=== PATIENT | female | born 1990 | race Caucasian/White ===

== ENCOUNTER 2024-08-04 16:56 | Emergency (ER) | payer OTHER, SELFPAY ==
[2024-08-04 17:16] VITALS: BP 115/75
[2024-08-04] MEDS: ATIVAN 2 MG IM (17:18)
[2024-08-04] MEDS: HALDOL 5 MG IM (17:19)
[2024-08-04] MEDS: NICODERM TRANSDERMAL 21 MG TRANSDERM (17:26)
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
[2024-08-04 18:58] LABS: % Basophils 0.2 % (0-2); % Eosinophils 0.4 % (0-6); % Immature Granulocytes 0.4 % (0-0.5); % Lymphocytes 26.3 % (20.5-51.1); % Monocytes 6.6 % (1.7-9.3); % Neutrophils 66.1 % (42.2-75.2); Absolute Lymphocytes 2.9 10^3/uL (1.2-3.4); Absolute Monocytes 0.7 10^3/uL (0.1-0.6); Absolute Neutrophils 7.4 10^3/uL (1.4-6.5); Hematocrit 36.8 % (37.0-47.0); Hemoglobin 12.8 g/dL (12.0-16.0); Mean Corp Hgb Conc. 34.8 g/dL (33.0-37.0); Mean Corpuscular Hgb 32.8 pg (27.0-31.0); Mean Corpuscular Volume 94.4 fL (81.0-99.0); Mean Platelet Volume 9.5 fL (7.4-10.4); Nucleated Red Blood Cells % 0 %; Platelet Count 209 10^3/uL (130-400); White Blood Cell Count 11.2 10^3/uL (4.8-10.8)
[2024-08-04 19:08] LABS: HCG, Serum Qualitative Screen Negative
[2024-08-04 19:12] LABS: ALT (SGPT) 27 U/L (0-35); AST (SGOT) 40 U/L (14-36); Acetaminophen < 10 ug/ml (10-30); Albumin 4.2 g/dl (3.5-5.0); Alcohol 48 mg/dl; Alkaline Phosphatase 54 U/L (38-126); Blood Urea Nitrogen 4 mg/dl (7-17); Calcium 9.6 mg/dl (8.4-10.2); Carbon Dioxide 27 mmol/L (22-30); Chloride 108 mmol/L (98-107); Glucose 84 mg/dl (70-99); Potassium 3.8 mmol/L (3.5-5.1); Salicylate < 1.0 mg/dl (2.0-20.0); Sodium 141 mmol/L (135-145); Total Bilirubin 0.6 mg/dl (0.2-1.3); Total Protein 6.8 g/dl (6.3-8.2); eGFR > 60.00
[2024-08-04 19:54] VITALS: BP 117/66
[2024-08-05 07:22] VITALS: BP 106/69
[2024-08-05 10:43] LABS: Amphetamines Negative (Negative); Barbiturates Negative (Negative); Benzodiazepines Positive (Negative); Buprenorphine Negative (Negative); Cocaine Negative (Negative); Marijuana Positive (Negative); Methadone Negative (Negative); Methamphetamines Negative (Negative); Opiates Negative (Negative); Phencyclidine Negative (Negative); Tricyclic Antidepressants Negative (Negative)
[2024-08-05 11:01] LABS: Fentanyl, Urine Negative (Negative)
== END 2024-08-05 12:55 ==
LOC: EMR 16:56
PROVIDERS: EMERGENCY PHYSICIAN Emergency Medicine
DX: F29 Unspecified psychosis not due to a substance or known physiological condition (principal); F17.200 Nicotine dependence, unspecified, uncomplicated
CPT/HCPCS: 99285; 96372 ×2; 80053; 80143; 80179; 80306; 80307; 82077; 84703; 85025

== ENCOUNTER 2024-10-09 06:06 | Emergency (ER) | payer OTHER, SELFPAY ==
[2024-10-09 06:08] VITALS: BP 130/70
[2024-10-09 06:26] VITALS: BMI 24.1
--- NOTE | 2024-10-09 06:35 | ED.GENMED ---
History of Present Illness
<Rodger Rubio MD, Resident - Last Filed: 10/09/24 07:53>
General
Chief Complaint: Allergic Reaction
Source: patient
Exam Limitations: none
Time Seen by Provider: 10/09/24 06:17
Nursing documentation reviewed up to this point in time: agreed with
History of Present Illness
History of Present Illness:
This is a 34-year-old female With history of ADHD, alcohol abuse, anxiety/depression, bipolar, panic disorder, PTSD history of substance abuse, multiple medication for mental health presenting to the emergency department today with complaints of
left eye swelling. She reports that initially she noticed some puffiness of her left eye yesterday however when she woke up today her eye was extremely swollen and tender to touch which prompted her to visit the emergency department. She denies
any fevers or chills, denies any other systemic symptoms. Denies any vision changes, headache, trouble breathing, chest pain or any weakness. She also denies any exposure to new medication, new make-ups, new laundry detergents, new bed sheets.
She uses contacts. However she was able to remove the as she can also use the prescription eyeglasses. Denies any pain with eye movement.Denies diplopia or vision impairment.
Reports that she had a spider bite on the left leg 2 weeks ago and utilized doxycycline which helped resolve the swelling of the left eye.
Past History
<Rodger Rubio MD, Resident - Last Filed: 10/09/24 07:53>
Past History
ED Past Medical History: Psychiatric (ADHD, alcohol abuse, anxiety/depression, bipolar, panic disorder, PTSD, substance anteriors)
ED Past Surgical History: Orthopedic and Other (Oral)
Patient has exhibited threatening behavior?: No
Social History
Tobacco: Smoker (1 pack/day)
Alcohol: Binge drinker
Drug: Marijuana
Personal: Single
Family History
Family History: Other (Noncontributory)
Review of Systems
<Rodger Rubio MD, Resident - Last Filed: 10/09/24 07:53>
Review of Systems
Allergies reviewed?: Yes
Constitutional: Denies fever or chills
EENT: Denies tearing, sore throat, mouth swelling or runny nose
Respiratory: Denies cough
Cardiac: Denies chest pain
ABD/GI: Denies abdominal pain
: Denies dysuria
Musculoskeletal: Denies joint pain
Skin: Reports other (Pain and swelling of the left eye); Denies itching
Neurological: Denies dizzy
Endocrine: Denies polyuria
Hematologic/Lymphatic: Denies bleeding
Psychiatric: Reports anxiety; Denies suicidal
Phy Exam
<Rodger Rubio MD, Resident - Last Filed: 10/09/24 07:53>
General Physical Exam
General Presentation: no apparent distress
General age: appears stated age
General Skin: warm
General Habitus: normal
General Mental: alert
General Hydration: appears well hydrated
Eye Exam
Eye Exam: PERRL, EOMI, cornea clear, conjunctiva normal, visual hayden normal and other (Visible swelling around the left eye, mildly tender to palpation. Possible insect bite below the lower eyelid where there is some exudate. Mild erythema)
Able to obtain acuity?: Yes
Right 20/: 25
Left 20/: 25
Both 20/: 20
Cardiovascular Exam
Cardiovascular Exam: regular rate/rhythm
Pulmonary Exam
Pulmonary Exam: no stridor and no cough
Musculoskeletal Exam
Musculoskeletal Exam: full ROM
Skin Exam
Skin Exam: normal color and other (Multiple cigarette dickinson barrientos on bilateral upper extremities)
Course
<Rodger Rubio MD, Resident - Last Filed: 10/09/24 07:53>
Orders/Labs/Results
Orders:
Orders
10/09/24 07:27
Visual Acuity- Treatment ONCE
10/09/24 07:43
Cefuroxime Axetil [Ceftin] 500 mg PO NOW STA
Sulfamethox./Trimethoprim Ds [Bactrim Ds 800 mg/160 mg] 1 tablet PO NOW STA
Vital Signs
Initial and Last Documented VS:
Initial Vital Signs
Temp Pulse Resp BP Pulse Ox
37.1 C 85 18 130/70 96
10/09/24 06:08 10/09/24 06:08 10/09/24 06:08 10/09/24 06:08 10/09/24 06:08
Last Documented Vital Signs
Temp Pulse Resp BP Pulse Ox
37.1 C 85 18 130/70 96
10/09/24 06:08 10/09/24 06:08 10/09/24 06:08 10/09/24 06:08 10/09/24 06:36
<Harvey Franks MD - Last Filed: 10/09/24 07:57>
Orders/Labs/Results
Orders:
Orders
10/09/24 07:27
Visual Acuity- Treatment ONCE
10/09/24 07:43
Cefuroxime Axetil [Ceftin] 500 mg PO NOW STA
Sulfamethox./Trimethoprim Ds [Bactrim Ds 800 mg/160 mg] 1 tablet PO NOW STA
Vital Signs
Initial and Last Documented VS:
Initial Vital Signs
Temp Pulse Resp BP Pulse Ox
37.1 C 85 18 130/70 96
10/09/24 06:08 10/09/24 06:08 10/09/24 06:08 10/09/24 06:08 10/09/24 06:08
Last Documented Vital Signs
Temp Pulse Resp BP Pulse Ox
37.1 C 85 18 130/70 96
10/09/24 06:08 10/09/24 06:08 10/09/24 06:08 10/09/24 06:08 10/09/24 06:36
<Rodger Rubio MD, Resident - Last Filed: 10/09/24 07:53>
MDM/Problems Addressed
Differential Diagnosis Includes:
Periorbital cellulitis vs unlikely orbital cellulitis vs others
MDM/Problems Addressed:
Given patient's history of amoxicillin allergy we will consider Ceftin 500mg twice daily for 10 days.
Due to prevalence of community-acquired MRSA, patient with likely staff aureus infection warrants initial empiric therapy against MRSA
will add Bactrim for MRSA coverage as there is suspicion of insect bite.
Telemetry shows eye pressure of 17 in the right eye and 14 in the left eye.
Visual equity normal bilateral
1 dose of Bactrim and Ceftin given in the ER
Patient's vital remained stable in the ER.
Patient's symptoms ideally Should start to improve within 24-48 hours.
Shared decision was made with the patient for discharge home and complete a course of antibiotic outpatient. Return to precautions reviewed. Patient voices understanding agree with the plan.
Chronic conditions affecting care: Psychiatric illness
<Rodger Rubio MD, Resident - Last Filed: 10/09/24 07:53>
*Pulse Oximetry
SaO2: 96
Oxygen Mode of Delivery: Room air
Patient hypoxic: no
*Critical Care Note
Total Time (30-74mins, 75-104mins- exclusive of procedures): Not Applicable
ED Attending Note
<Rodger Rubio MD, Resident - Last Filed: 10/09/24 07:53>
-
Portions of this chart may have been created with voice recognition software.� Occasional wrong word or��sound alike� substitutions may have occurred due to the inherent limitations of voice recognition software.
<Harvey Franks MD - Last Filed: 10/09/24 07:57>
ED Attending Note
Patient seen and examined by attending physician: Yes
I performed a history and physical exam of patient and discussed management with resident, I reviewed resident's note and agree with documented findings and plan of care.: Yes
ED Attending Note:
I have seen and evaluated the patient with a [id number] encounter. I have spoken to the resident and involved in the medical history, the physical exam, medical decision making.
Evaluation and management service: agree unless noted differently below.
Results interpretation: agree unless noted differently below.
Focused HPI: 34-year-old female with history as noted presents to the ER for evaluation of left periorbital swelling. Patient reports that yesterday she noticed tiny pustule under the left eye and some slight localized swelling; this morning woke
up and had significant periorbital swelling and redness and came to the ER for evaluation. Area is mildly painful. She thinks pustule may have been a bug bite as she says that she has had multiple spider bites recently including one that required
a course of doxycycline 2 weeks ago. She denies any trauma to the eye otherwise. She denies any pain in the eye itself. She denies any change in her vision. She denies any fever or chills. Denies any other acute complaints.
Physical exam: Awake alert no distress. Vital signs are normal. She has left periorbital edema with some slight erythema and warmth of the area; she did have tiny pustule under the left eye in the maxillary region but no vesicles area is minimally
tender. Conjunctiva are normal bilaterally, pupils are equal round reactive to light bilaterally. Extraocular movements are intact without any pain. No proptosis noted. Visual acuity as documented. Eye pressures normal.
Medical Decision Makin-year-old female presents with periorbital edema and erythema after noticing a tiny pustule in the maxillary region last night. Vitals and exam as above. Exam is consistent with preseptal cellulitis. Low suspicion for
orbital cellulitis given lack of pain and EOMI, no proptosis, EOMs intact without pain. No vesicles to suggest shingles. Plan to treat with antibiotics. Spoke about follow-up plan and return precautions and all questions answered.
Discharge Plan
Departure
Patient Disposition: Home (Routine Discharge)
Date of Disposition: 10/09/24
Time of Disposition: 07:47
Patient with high blood pressure during this ER visit?: No
Condition: Fair
Discharge Problem:
Preseptal cellulitis of left eye
Instructions: Preseptal cellulitis - ED discharge instructions
Prescriptions:
New
cefuroxime axetil 500 mg tablet
500 mg PO BID Qty: 20 0RF
sulfamethoxazole-trimethoprim [Bactrim DS] 800-160 mg tablet
1 tab PO BID Qty: 20 0RF
No Action
aripiprazole [Abilify] 5 mg Tablet
5 mg PO HS
Referrals:
Tammie Perez MD [Family Provider, Family Practice] - Follow up in 1 week
Activity Restrictions/Additional Instructions:
You were seen at [facility] emergency department with concerns of left eye swelling. While you were in the emergency department we performed tonometry to check the eye pressure, visual equity test. Both were unremarkable. You were given
1 dose of Bactrim 800/160 and Ceftin 500mg in the ER. A prescription of Bactrim and Ceftin was sent to the pharmacy that you should take for 10 days in total. Ideally your symptoms should start improving in 1 to 2 days however if you develop any
worsening of the symptoms or any new worrisome concerns please return to the emergency department. If you develop any pain with eye movement, change in vision, popping of the eye, fevers or chills you should come back to the emergency department.
Please follow-up with your family doctor for any additional recommendations.
Interventions
Interventions:
*Risk Screen - Suicide Last Done: 10/09/24 06:11
*General Assessment Last Done: 10/09/24 06:11
*Neglect/Abuse Screening Last Done: 10/09/24 06:11
*ED COVID-19 Vaccine History Last Done: 10/09/24 06:11
ED- Cardiac Assessment Last Done: 10/09/24 06:26
ED- Pulmonary Assessment Last Done: 10/09/24 06:26
ED-Skin Assessment Last Done: 10/09/24 06:26
Discharge Date and Time
Print Language: GABONESE
[2024-10-09 07:58] VITALS: BP 107/74
[2024-10-09] MEDS: BACTRIM DS 800 MG/160 MG 1 TABLET PO (08:03)
[2024-10-09] MEDS: CEFTIN 500 MG PO (08:10)
== END 2024-10-09 08:48 | disposition home or self-care (01) ==
LOC: EMR 06:06
PROVIDERS: EMERGENCY PHYSICIAN Emergency Medicine; FAMILY PHYSICIAN Family Medicine
DX: L03.213 Periorbital cellulitis (principal); F31.9 Bipolar disorder, unspecified; F41.9 Anxiety disorder, unspecified; F17.210 Nicotine dependence, cigarettes, uncomplicated
CPT/HCPCS: 99283

== ENCOUNTER 2024-12-24 12:59 | Emergency (ER) | payer OTHER, SELFPAY ==
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
== END 2024-12-24 14:55 ==
LOC: EMR 12:59
PROVIDERS: EMERGENCY PHYSICIAN Emergency Medicine
DX: F43.25 Adjustment disorder with mixed disturbance of emotions and conduct (principal); F17.210 Nicotine dependence, cigarettes, uncomplicated; Z59.00 Homelessness unspecified; Z78.1 Physical restraint status
CPT/HCPCS: 99285

== ENCOUNTER 2025-02-13 13:23 | Inpatient (IN) | payer OTHER, MEDICAID, SELFPAY ==
[2025-02-13] VITALS (9 sets, daily range): BP systolic 98–125; BP diastolic 51–72; BMI 23.1
[2025-02-13 08:49] LABS: Hematocrit 34.1 % (37.0-47.0); Hemoglobin 11.7 g/dL (12.0-16.0); Mean Corp Hgb Conc. 34.3 g/dL (33.0-37.0); Mean Corpuscular Volume 92.2 fL (81.0-99.0); Nucleated Red Blood Cells % 0 %; Platelet Count 187 10^3/uL (130-400); Red Cell Dist. Width 11.8 % (11.5-14.5)
[2025-02-13 09:03] LABS: Blood Urea Nitrogen 10 mg/dl (7-17); Calcium 9.6 mg/dl (8.4-10.2); Carbon Dioxide 27 mmol/L (22-30); Chloride 105 mmol/L (98-107); Estimated Creatinine Clearance 89 ml/min; Glucose 87 mg/dl (70-99); Potassium 4.0 mmol/L (3.5-5.1); Sodium 138 mmol/L (135-145); eGFR > 60.00
[2025-02-13] MEDS: VANCOCIN 530 MG IV (09:19)
--- NOTE | 2025-02-13 10:54 | ED.GENMED ---
History of Present Illness
General
Chief Complaint: Skin Problem
Source: patient
Exam Limitations: none
Time Seen by Provider: 02/13/25 07:54
History of Present Illness
History of Present Illness:
Note:
CHIEF COMPLAINT(S)
Facial swelling and redness with pain.
HISTORY OF PRESENT ILLNESS
The patient is a 34-year-old female who presents with worsening facial swelling and redness. She reported that the symptoms began three days ago on Thanksgiving. The patient visited a clinic where she was started on Trimethoprim-Sulfamethoxazole
(Bactrim) and Clindamycin as prescribed by a nurse. She has received one dose of each antibiotic, but states she woke up today with her symptoms being markedly worse. The patient has a history of a similar facial cellulitis episode and recalls being
treated with antibiotics, though she does not remember the names of all past medications. In the past, the condition resolved after a prolonged duration and required a visit to urgent care for a different antibiotic. She noted an area under her left
eye with scabbing and described it initially as resembling a pimple. Upon examination, she complained of burning around her eye, which she attributed to contact lens use.
The patient has a documented allergy to Penicillin and Amoxicillin but denies any other allergies or significant medical history, including diabetes.
PHYSICAL EXAM
General: Alert, no acute distress.
Skin: Left facial swelling with redness, notable induration lateral to the nose, approximately 1.5 cm by 1.5 cm, with scabbing but no fluctuance. Warm, dry. Left periorbital swelling noted. Extraocular muscles are intact. Sclera otherwise normal.
No proptosis
Head: Normocephalic, atraumatic.
Neck: Supple, trachea midline.
Eyes: Periorbital edema more pronounced on the left side, left lacey-orbital erythema. Oral mucosa moist.
Cardiovascular: Normal peripheral perfusion, No edema.
Respiratory: Respirations are non-labored, no distress.
Neurological: Alert and oriented to person, place, time, and situation.
Psychiatric: Cooperative, appropriate mood & affect.
PROBLEM LIST
Acute Problems:
- Facial cellulitis
- Left facial induration
- Possible abscess formation
PLAN
- Initiate intravenous antibiotic therapy.
- Apply warm compresses to the affected area to enhance blood flow.
- Obtain and review laboratory results to guide further treatment.
- Discussed the importance of hospital admission for monitoring and intravenous treatment due to the severity and location of the cellulitis.
DIFFERENTIAL DIAGNOSIS
The Differential Diagnosis includes, in no particular order and is not limited to:
- Facial cellulitis
- Abscess formation
- Preseptal cellulitis
- Orbital cellulitis
- Dental abscess
- Erysipelas
- Contact dermatitis
- Insect bite reaction
- Fungal infection
- Herpes simplex infection
Disposition:
SUMMARY OF ENCOUNTER
The patient is a 34-year-old female from [facility] presenting with left facial cellulitis that worsened despite outpatient antibiotic treatment. She reported increased redness and periorbital swelling. On examination, there
was a clear induration left of the nose, suggesting a facial abscess, though no fluctuance indicated the need for immediate drainage. Her infection appeared superficial without muscle involvement or proptosis.
DISPOSITION
Admit for facial cellulitis.
ASSESSMENT
The patient presents with worsening left facial cellulitis with possible abscess formation.
MANAGEMENT OF THE PATIENTS CARE WAS DISCUSSED WITH
This case was discussed with the hospitalist.
PLAN
- Initiate intravenous antibiotic therapy.
- Admission to the hospital for monitoring and treatment of facial cellulitis due to its severity and location.
MEDICAL DECISION MAKING
-Complexity of Data Reviewed: Chronic conditions affecting care with the differential diagnosis including facial cellulitis, abscess formation, preseptal cellulitis, orbital cellulitis, dental abscess, erysipelas, contact dermatitis, insect bite
reaction, fungal infection, and herpes simplex infection.
Category 1
Non-emergency department records reviewed, if applicable. External record reviewed: I reviewed the patients outpatient pharmacy records.
Category 3
Discussion of management with other physician, healthcare provider, other source: This case was discussed with the hospitalist.
DIAGNOSIS
- Facial cellulitis (L03.211)
- Possible facial abscess (L02.215)
Past History
Past History
ED Past Medical History: Psychiatric (ADHD, alcohol abuse, anxiety/depression, bipolar, panic disorder, PTSD, substance anteriors)
ED Past Surgical History: Orthopedic and Other (Oral)
Patient has exhibited threatening behavior?: No
Social History
Tobacco: Smoker (1 pack/day)
Alcohol: Binge drinker
Drug: Marijuana
Personal: Single
Living: homeless
Employment: Not employed
Family History
Family History: Other (Noncontributory)
Phy Exam
Physical Exam
Physical Exam:
.
Course
Orders/Labs/Results
Orders:
Orders
02/13/25 08:38
Basic Metabolic Panel Urgent
Complete Blood Count/With Diff Urgent
Lactic Acid Q4H
Comment: CANCEL 2nd LACTIC ACID IF 1st LACTIC ACID IS LESS THAN 2
Blood Culture Q30M
JULIANNE Source: Blood/Venous
Specimen Description:
02/13/25 08:40
Blood Culture Q30M
JULIANNE Source: Blood/Venous
Specimen Description:
02/13/25 08:53
Vancomycin [Vancocin] 1,500 mg 0.9% Sodium Chloride 500 ml [Nss] 500 ml IV NOW
02/13/25 12:15
Lactic Acid Q4H
Comment: CANCEL 2nd LACTIC ACID IF 1st LACTIC ACID IS LESS THAN 2
Abnormal Lab Results
02/13/25
08:38
RBC 3.70 L 10^6/uL
(4.20-5.40)
Hgb 11.7 L g/dL
(12.0-16.0)
Hct 34.1 L %
(37.0-47.0)
MCH 31.6 H pg
(27.0-31.0)
02/13/25 08:38
02/13/25 08:38
Vital Signs
Initial and Last Documented VS:
Initial Vital Signs
Temp Pulse Resp BP Pulse Ox
98.4 F 97 18 114/51 99
02/13/25 07:41 02/13/25 07:41 02/13/25 07:41 02/13/25 07:41 02/13/25 07:41
Last Documented Vital Signs
Temp Pulse Resp BP Pulse Ox
98.4 F 80 16 100/60 100
02/13/25 07:41 02/13/25 10:47 02/13/25 10:47 02/13/25 10:47 02/13/25 10:55
*Pulse Oximetry
SaO2: 100
Oxygen Mode of Delivery: Room air
Patient hypoxic: no
*Critical Care Note
Total Time (30-74mins, 75-104mins- exclusive of procedures): Not Applicable
ED Attending Note
-
Portions of this chart may have been created with voice recognition software.� Occasional wrong word or��sound alike� substitutions may have occurred due to the inherent limitations of voice recognition software.
Discharge Plan
Departure
Patient Disposition: Admit
Date of Disposition: 02/13/25
Time of Disposition: 11:31
Admit to: Med/Surg
Presentation/result/management discussed w/ accepting MD/DO: Hospitalist
Discharge Problem:
Facial cellulitis, Abscess of face
Prescriptions:
No Action
aripiprazole [Abilify] 5 mg Tablet
5 mg PO DAILY
benztropine 0.5 mg Tablet
0.5 mg PO BID
haloperidol 1 mg Tablet
1 mg PO HS
prazosin 5 mg Capsule
5 mg PO HS
lamotrigine 100 mg Tablet
100 mg PO BID
hydroxyzine pamoate 25 mg Capsule
25 mg PO BID
Referrals:
[facility] [Family Provider, General]
Interventions
Interventions:
*Risk Screen - Suicide Last Done: 02/13/25 07:45
*General Assessment Last Done: 02/13/25 07:44
*Neglect/Abuse Screening Last Done: 02/13/25 07:45
*ED- Fall Risk Assessment Last Done: 02/13/25 08:09
*ED COVID-19 Vaccine History Last Done: 02/13/25 07:43
*ED Influenza Vaccine History Last Done: 02/13/25 07:43
ED-Skin Assessment Last Done: 02/13/25 08:09
Discharge Date and Time
Print Language: INDONESIAN
--- NOTE | 2025-02-13 11:43 | HPS.HSE ---
Family Physician
-
Family Physician: Facility [facility]
Chief Complaint
-
Left eye pain, swelling
History of Present Illness
2 guards are present [facility] while on taking history
34-year-old female Chel with known history of alcohol abuse, bipolar, ADHD to ED for left-sided worsening facial swelling, redness. It started on , she noticed it after having lunch and visited a clinic where she was started on
trimethoprim-sulfamethoxazole (Bactrim), and clindamycin as prescribed by nurse. However she was noncompliant with antibiotics and today morning when she woke up she saw her left side face completely swollen, (2 guards who are currently presented
with her also mentioned she had swollen left side face), she is currently using contact lens for the past 2 months without replacing it. She used to sleep with contact lenses and did not use lens solution to to store or while on reusing it. She
explained that the pain started at her left side nose with a small pimple size and it started to spread towards her all over her left eye, associated with mild left-sided light sensitive, chills, pain for she rates it as 6/10. Denied fever, bug
bite, chest pain, palpitation, dizziness, sinusitis.
She had previous episode on the left side eye but not on the same place.
Medical History
Past Medical History
Past Medical History: Reports Asthma, Psychiatric (Bipolar disorder, panic disorder, PTSD.) and Other (Alcohol abuse, polysubstance abuse.)
Past Surgical History: Reports Orthopedic and Other (Ankle surgeries)
Social History
Tobacco: Smoker
Alcohol: Daily
Drug: Marijuana
Personal: Single
Living: Nursing Home
Employment: Not Employed
Family History
Family History: Asthma
Allergies / Home Medications
Allergies
Allergy/AdvReac Type Severity Reaction Status Date / Time
amoxicillin (Amoxicillin) Allergy Rash Verified 02/13/25 08:43
Penicillins Allergy Rash Verified 02/13/25 08:43
Home Medications
aripiprazole 5 mg tablet (Abilify) 5 mg PO DAILY 07/08/22
benztropine 0.5 mg tablet 0.5 mg PO BID 02/13/25
haloperidol 1 mg tablet 1 mg PO HS 02/13/25
hydroxyzine pamoate 25 mg capsule 25 mg PO BID 02/13/25
lamotrigine 100 mg tablet 100 mg PO BID 02/13/25
prazosin 5 mg capsule 5 mg PO HS 02/13/25
Allergies reflects when Allergies were last updated in [facility].
Home Medications with original date entered in [facility]
Allergy/Medication List:
Allergies
Allergy/AdvReac Type Severity Reaction Status Date / Time
amoxicillin (Amoxicillin) Allergy Rash Verified 02/13/25 08:43
Penicillins Allergy Rash Verified 02/13/25 08:43
Review of Systems
-
A 12 point ROS was completed and negative except as noted: Yes
Constitutional: Reports See HPI
Physical Exam
Vital Signs
Vital Signs
Temp Pulse Resp BP Pulse Ox
98.4 F 80 16 100/60 100
02/13/25 07:41 02/13/25 10:47 02/13/25 10:47 02/13/25 10:47 02/13/25 10:55
Physical Exam
General: Appears in Distress and Pain (/)
HEENT: Anicteric, No Ptosis and Other (Pupil reflex normal, visual acuity normal, wearing contact lens, no restriction of movements, mild photosensitivity, dandruff present, redness, spread of swelling. )
Respiratory: Wheezes
Cardiac: S1/S2 and Regular Rhythm
GI: Soft, Non Tender and Non Distended
Musculoskeletal: No Clubbing
Skin: Warm, Lesions (Left-sided nostril scar alexander present around that rate swelling which is spreading towards the left orbital region.) and Other (Cigarette burn barrientos present at bilateral forearms)
Neuro: AO x 3
Hematologic/Lymphatic: No Lymphadenopathy
Psych: Calm
Laboratory Results
-
02/13/25 08:38
02/13/25 08:38
Laboratory Results
Lactic Acid 1.2 mmol/L (0.7-2.0) 02/13/25 08:38
Impression/Plan
-
IMPRESSION & PLAN:
34-year-old female Chel with known history of alcohol abuse, bipolar, ADHD to ED for left-sided worsening facial swelling, redness.
# Soft tissue infection/left side face cellulitis:
WBC count WNL, afebrile, vital stable
Left-sided eye : Redness around eyes, restriction of movement of extraocular muscles, pupils are reactive, mild light sensitive, no purulent discharge, no conjunctival injections, visible left side maxillary region scar present.
On throat examination nonerythematous
Nose: Stuffy nose.
Ordered CT face scan for left-sided face cellulitis.
Currently she has no complaint of blurry vision, on examination so
Antibiotics include vancomycin, IV metronidazole, cefepime for broad-spectrum coverage but given her penicillin allergy history.
Blood culture pending
MRSA pending
Consult ENT for possible incision and drainage forehead left side face cellulitis.
Differential diagnosis includes conjunctivitis, episcleritis, trauma h/o, eye infection, bug bite, contact lens, direct hit on the eye, sinusitis ??, Doppler Scratch, chemical allergy, pimple, hygiene, self-induced.
# Bipolar disorder:
Continue aripiprazole, haloperidol 1 mg, hydroxyzine, lamotrigine.
Currently on telemetry to monitor QT interval
# Posttraumatic stress disorder:
Continue prazosin, lamotrigine.
DVT-Lovenox SQ
Diet-regular
Code-full
Disposition-snf
[2025-02-13 12:59] LABS: C-Reactive Protein 23.50 mg/L (0.0-10.00)
--- NOTE | 2025-02-13 13:46 | W.PN.ENT ---
Today's Communication
-
as above
Impression / Plan
-
Facial cellulitis but no significant abscess.
Would cancel the CT for now as drainage already performed.
Agree with antibiotics, await culture results
Subjective Data
-
Pt seen and full consult dictated.
Objective Data
-
Vital Signs
Temp Pulse Resp BP Pulse Ox
98.4 F 71 16 116/59 97
02/13/25 07:41 02/13/25 13:21 02/13/25 13:21 02/13/25 13:21 02/13/25 13:21
Lab Results
02/13/25 08:38
02/13/25 08:38
Calcium 9.6 mg/dl (8.4-10.2) 02/13/25 08:38
Physical Exam
-
Cellulitis and 'pimple' noted on left maxilla as likely epicenter.
I and D performed at bedside and a very small amount of pus drained and cultured.
[2025-02-13] MEDS: MAXIPIME 1000 MG IV ×2 (13:50→21:57)
[2025-02-13] MEDS: STERILE WATER FOR INJECTION 10 ML IV ×2 (13:50→21:57)
[2025-02-13] MEDS: FLAGYL 500 MG 100 IV ×2 (13:52→21:55)
--- NOTE | 2025-02-13 14:24 | PHA.VAN.IN ---
Assessment
- Assessment
Renal Function: Appears similar to baseline
Concomitant Antimicrobials: cefepime,metronidazole
AUC Dosing Plan
- Dosing Variables
Dosing Weight (kg): 68.8
Dosing CrCl (ml/min): 89
Vd coefficient (L/kg): 0.7
- Empiric Dosing
Initial / Loading Dose: 1500mg
Maintenance Regimen: 1000mg q12h
Estimated AUC (mcg*h/mL): 551
Estimated Peak (mcg*h/mL): 34.1
Estimated Trough (mcg/ml): 14.4
Estimated Half Life (H): 8.9
- Monitoring
No levels ordered at this time: consider at steady state
MRSA Screen: Ordered per protocol
Pharmacokinetics Vancomycin I
- -
Patient Age: 34
Patient Sex: Female
Vancomycin Day #: 1
Indication: Skin And Soft Tissue
Requesting Provider: Vignesh
Pertinent Antimicrobial Allergies:
pcns=rash
amoxicillin=rash
Height / Weight:
Height 5 ft 8 in
Actual Weight 68.8 kg
IBW in k.9
- Vital Signs / Lab Results
Temp Pulse Resp BP Pulse Ox
98.4 F 71 16 116/59 97
02/13/25 07:41 02/13/25 13:21 02/13/25 13:21 02/13/25 13:21 02/13/25 13:21
Lab Results - Hematology
02/13/25
08:38
WBC 8.0
Lab Results - Chemistry
02/13/25
08:38
BUN 10
Creatinine 0.9
Estimated Creat Clear 89
02/13/25 02/13/25
08:38 12:15
Lactic Acid 1.2 Cancelled
--- NOTE | 2025-02-13 14:42 | EDRN ---
Patient taken to room 2140 on monitor on stretcher by instrument and controls technician. Intermediate guards with patient.
--- NOTE | 2025-02-13 15:17 | PTCARENOTE ---
pt admitted to 2N by this nurse this afternoon. pt aaox3, vss but dealing with left orbital discomfort due to swelling underneath eye. was on oral abx but not resolved at [facility]. RN called [facility] to confirm psych medication dosing. meds
discussed with MD and resident and medication doses being adjusted at this time. pt oriented to room and shown how to use call light.
[2025-02-13] MEDS: LAMICTAL 100 MG PO ×2 (15:53→20:12)
[2025-02-13] MEDS: CILOXAN 0.3% OPHTHALMIC SOLUTION 1 DROP LEFT EYE ×3 (15:53→21:55)
[2025-02-13] MEDS: ABILIFY 30 MG PO (15:54)
[2025-02-13] MEDS: LOVENOX 40 MG SC (17:36)
[2025-02-13] MEDS: VANCOCIN 200 IV (17:37)
[2025-02-13] MEDS: ATARAX 25 MG PO (20:12)
[2025-02-13] MEDS: TYLENOL 650 MG PO (20:12)
[2025-02-13] MEDS: COGENTIN 0.5 MG PO (20:12)
[2025-02-13] MEDS: HALDOL 1 MG PO (21:55)
[2025-02-13] MEDS: MINIPRESS 5 MG PO (21:58)
[2025-02-13] MEDS: REFRESH EYE DROPS (PF) 1 DROPS OPHTH (22:20)
[2025-02-14] MEDS: CILOXAN 0.3% OPHTHALMIC SOLUTION 1 DROP LEFT EYE ×4 (02:35→13:11)
[2025-02-14 03:13] VITALS: BP 99/60
[2025-02-14] MEDS: FLAGYL 500 MG 100 IV ×2 (05:13→13:09)
[2025-02-14] MEDS: STERILE WATER FOR INJECTION 10 ML IV ×2 (05:13→13:09)
[2025-02-14] MEDS: MAXIPIME 1000 MG IV ×2 (05:13→13:10)
[2025-02-14] MEDS: VANCOCIN 200 IV (06:17)
[2025-02-14 07:00] VITALS: BP 110/57
[2025-02-14 07:12] LABS: Hematocrit 32.2 % (37.0-47.0); Hemoglobin 10.9 g/dL (12.0-16.0); Mean Corp Hgb Conc. 33.9 g/dL (33.0-37.0); Mean Corpuscular Volume 90.7 fL (81.0-99.0); Nucleated Red Blood Cells % 0 %; Platelet Count 197 10^3/uL (130-400); Red Cell Dist. Width 11.8 % (11.5-14.5)
--- NOTE | 2025-02-14 07:19 | W.PN.HOSP.TC ---
Today's Communication/Plan
-
Continue antibiotics for 8 more days
Wound instructions given at discharge orders
MRSA positive
Assessment / Plan
Assessment / Plan
34-year-old female Chel with known history of alcohol abuse, bipolar, ADHD to ED for left-sided worsening facial swelling, redness.
# Soft tissue infection/left side face cellulitis:
WBC count WNL, afebrile, vital stable
Currently she has no complaint of blurry vision,
Vitals: 110/57, FL 75, RR 20, Tmax 100.6, O2 sat 97
Lab: Hemoglobin 11.7--10.9, hematocrit 32.2 low,
Chemistry C-reactive protein 23.5 high--pending for today
Toxicology test: Benzodiazepines positive
I&D wound/abscess culture: Prelim report shows Staph aureus MRSA and isolation precautions required.
Blood culture pending
ENT consulted: I&D completed and culture sent yesterday and recommended same antibiotics
Antibiotics include day 2 vancomycin, IV metronidazole, cefepime for broad-spectrum coverage by given penicillin allergy history.
IV antibiotics switched to doxycycline 100 mg, flagyl 500 mg TID to complete 10 days course while on discharge.
Ciprofloxacin eye drops for 2 drops every 4 hrs to complete 7 days for conjunctival injections.
#Patient kept on telemetry QT 392, QTc 447 with normal sinus,
Differential diagnosis includes conjunctivitis, episcleritis, trauma h/o, eye infection, bug bite, contact lens, direct hit on the eye, sinusitis ??, Scratch, chemical allergy, pimple, hygiene, self-induced.
# Bipolar disorder:
Continue aripiprazole, haloperidol 1 mg, hydroxyzine, lamotrigine.
Currently on telemetry to monitor QT interval
# Posttraumatic stress disorder:
Continue prazosin, lamotrigine.
# Today ENT specialist note mentioned a small amount of pus aspirated yesterday, and suspecting MRSA, not record for CT scan, recommended to continue with the same antibiotics.
DVT-Lovenox SQ
Diet-regular
Code-full
Disposition-longterm
Anticipated Discharge: Today
Subjective/Interval History
-
Date of Service: February 14, 2025
Overnight the patient had fever noted as 100.6 F and she received Tylenol. Her left-sided face swelling, redness, pain reduced from the time of admission. She refused palpitation, chest pain, dizziness while on walking.
Objective Data
-
Labs:
Laboratory Results
02/14/25
06:20
WBC 6.3
Hgb 10.9 L
Hct 32.2 L
Plt Count 197
Sodium Pending
Potassium Pending
Chloride Pending
Carbon Dioxide Pending
BUN Pending
Creatinine Pending
Glucose Pending
Calcium Pending
Total Bilirubin Pending
AST Pending
ALT Pending
Alkaline Phosphatase Pending
Vital Signs:
Vital Signs
Temp Pulse Resp BP Pulse Ox
98.2 F 73 18 99/60 95
02/14/25 03:13 02/14/25 03:13 02/14/25 03:13 02/14/25 03:13 02/14/25 03:13
I&O
02/13/25 02/14/25 02/15/25
06:59 06:59 06:59
Intake Total 480 / 480
Balance 480 / 480
Review of Systems
-
History Source: Patient
All other systems: Reviewed and negative
Physical Exam
-
HEENT: Normocephalic
Respiratory: Clear to Auscultation and Wheezes
Cardiac: Regular Rhythm and S1/S2
GI: Soft, Nontender and Nondistended
Genito-urinary: No Costovertebral Tender
Musculoskeletal: No Clubbing and No Edema
Skin: Warm and Other (Left side nostril cellulitis I&D dressing present, left-sided eye swelling reduced comparing from yesterday.)
Neuro: AO x 3
Hematologic / Lymphatic: No Lymphadenopathy
Psych: Calm
[2025-02-14 07:46] LABS: ALT (SGPT) < 10 U/L (0-35); AST (SGOT) 14 U/L (14-36); Albumin 4.0 g/dl (3.5-5.0); Alkaline Phosphatase 51 U/L (38-126); Blood Urea Nitrogen 12 mg/dl (7-17); Calcium 9.0 mg/dl (8.4-10.2); Carbon Dioxide 27 mmol/L (22-30); Chloride 104 mmol/L (98-107); Estimated Creatinine Clearance 100 ml/min; Glucose 93 mg/dl (70-99); Potassium 4.0 mmol/L (3.5-5.1); Sodium 137 mmol/L (135-145); Total Protein 6.4 g/dl (6.3-8.2); eGFR > 60.00
--- NOTE | 2025-02-14 08:09 | PHA.VAN.FU ---
Vancomycin Assessment / Plan
- Assessment
Renal Function: Stable
WBC's are: WNL
In the past 24 hrs, patient has been: Febrile (100.6F)
Concomitant Antimicrobials: CEFEPIME, METRONIDAZOLE
- Dosing Plan
Continue: 1000MG Q12H
- Monitoring Plan
Peak Level: 02/14 @2100
Trough Level: 02/15 @0530
- Follow Up
Pharmacy will continue to follow.
Vancomycin Follow UP
- -
Patient Age: 34
Patient Sex: Female
Vancomycin Day #: 2
Indication: Skin And Soft Tissue
Requesting Provider: Vignesh
Pertinent Antimicrobial Allergies:
pcns=rash
amoxicillin=rash
Height / Weight:
Height 5 ft 8 in
Actual Weight 68.8 kg
IBW in k.9
- Vital Signs / Lab Results
Temp Pulse Resp BP Pulse Ox
98.2 F 73 18 99/60 95
02/14/25 03:13 02/14/25 03:13 02/14/25 03:13 02/14/25 03:13 02/14/25 03:13
Lab Results - Hematology
02/13/25 02/14/25
08:38 06:20
WBC 8.0 6.3
Lab Results - Chemistry
02/13/25 02/14/25
08:38 06:20
BUN 10 12
Creatinine 0.9 0.8
Estimated Creat Clear 89 100
Albumin 4.0
02/13/25 02/13/25
08:38 12:15
Lactic Acid 1.2 Cancelled
Microbiology Results
02/13/25 14:04 Gram Stain - Preliminary
Abscess
[2025-02-14] MEDS: LAMICTAL 100 MG PO (08:40)
[2025-02-14] MEDS: COGENTIN 0.5 MG PO (08:40)
[2025-02-14] MEDS: ABILIFY 30 MG PO (08:40)
[2025-02-14] MEDS: ATARAX 25 MG PO (08:40)
[2025-02-14 11:00] VITALS: BP 103/61
--- NOTE | 2025-02-14 12:10 | CM ---
Addendum entered by Danuta Johnson 02/14/25 13:53:
Plan: Discharge to [facility] today
For Report, [facility] # [phone]

Original Note:
Chart reviewed; No skilled PT needed
Met w/ patient briefly at bedside; Independent w/ personal care; no device w/ambulation
[facility] when [facility] for discharge
[2025-02-14 14:31] LABS: C-Reactive Protein 33.30 mg/L (0.0-10.00)
[2025-02-14 15:00] VITALS: BP 105/53
--- NOTE | 2025-02-14 15:02 | W.DCSUMMARY ---
Documented by User: Mariann Medellin MD, Resident 02/14/25 15:16
Discharge Summary
Discharge Data
Date of Admission: 02/13/25
Date of Discharge: 02/14/25
Total time spent discharging patient (in min): 45 minutes
-
Pending Results: Yes
Additional Pending Results:
Wound culture final results are still pending while on discharge, however her preliminary reports MRSA positive
Hospital Course
Discharging Physician : Dr Feng Damon MD
Dr Mariann Medellin MD
[facility]
Primary care physician : [facility]
Principal Discharge diagnosis : Left facial cellulitis
Chronic Discharge diagnosis :
# Bipolar disorder continued with haloperidol 1 mg, aripiprazole 30 mg, lamotrigine 100 mg, to prevent extraparametal side effects benztropine 0.5 mg, hydroxyzine 25 mg .
# Posttraumatic stress disorder continued with prazosin 5 mg
Hospital Course :
2 guards are present from [facility] throughout this admission
On 02/13 34-year-old female with known history of bipolar disorder, posttraumatic stress disorder arrived to the ED from senior living for left side facial swelling. She was noticed it on and the swelling was not reduced with Bactrim,
clindamycin which was prescribed by nurse at present. While on the time of presentation she was wearing contact lens for the past 2 months without replacing it. She mentioned she used to sleep with contact lenses and did not use plan solution to
store it or while on reusing it. She explained that the pain started at her left side nose with a small pimple size and it started to spread towards her all over her left eye which was associated with a mild left-sided light-sensitive, chills. ENT
consulted and diagnosed with left-sided facial cellulitis, I&D performed, sent for wound culture. Started with vancomycin IV, metronidazole, cefepime for broad-spectrum coverage by given her penicillin allergy history. And turned out MRSA
positive, regards that antibiotics switched to doxycycline 100 mg twice a day, metronidazole 500 mg 3 times a day to complete 10 days course while on discharge, with wound care instructions, recommended to follow-up with PCP within a week.
Monitored QT interval by given antipsychotic medication. On DVT prophylaxis of Lovenox, regular diet with full code at this admission. She was stable at the time of discharge.
IMPORTANT:
If your symptoms worsen when you get home, go to the Emergency Room if you cannot reach a doctor, or call 911
Important imaging findings : None
Procedure findings :
Incision and drainage on 02/13 for left side facial cellulitis.
Discharge Plan
-
Patient Disposition: Custodial
Discharge Diagnosis/Procedures: Left facial cellulitis
MRSA positive
Left eye injection secondary to contact lens usage
Bipolar affective disorder
Posttraumatic stress disorder
Condition: Fair
Diet: No restrictions
Activity: No restrictions
Driving Restrictions: As prior to admission
Bathing Restrictions: None
Instructions: Wound Care (DC), Cellulitis (Skin Infection), Adult (DC), Skin Abscess
Referrals:
[facility] [Family Provider, General]
Additional Discharge Medication Instructions: -Continue metronidazole 500 mg tablet 3 times a day until 02/22
-Continue doxycycline 100 mg tablet twice a day until 02/22
-Continue ciprofloxacin eyedrops every 4 hours through 02/19
-Take probiotic along with medications.
-Try to clean with mild soap water while on shower for the wound, apply clean Band-Aid.
-Avoid alcohol while on metronidazole medication.
-If you experience skin rashes please stop doxycycline medication and report to the clinic.
-Follow-up with PCP within a week of discharge.
-Tylenol 1 g every 6 hours for pain, can also use ibuprofen 600 mg breakthrough discomfort, avoid prolonged course of NSAID
Prescriptions:
New
ciprofloxacin HCl 0.3 % Drops
1 drp LEFT EYE Q4H Qty: 10 0RF
acetaminophen 325 mg Tablet
650 mg PO Q4HPRN PRN (Reason: mild pain/COTTRELL/temp>100.5) Qty: 10 0RF
doxycycline hyclate 100 mg capsule
100 mg PO BID Qty: 17 0RF
metronidazole 500 mg tablet
500 mg PO TID Qty: 26 0RF
Probiotic 15 billion cell capsule, sprinkle
1 cap PO DAILY Qty: 20 0RF
Continued
benztropine 0.5 mg Tablet
0.5 mg PO BID
haloperidol 1 mg Tablet
1 mg PO HS
prazosin 5 mg Capsule
5 mg PO HS
lamotrigine 100 mg Tablet
100 mg PO BID
hydroxyzine pamoate 25 mg Capsule
25 mg PO BID
aripiprazole 30 mg tablet
30 mg PO DAILY
Discharge Orders:
Discharge Patient (As Directed); Ordered 02/14/25
Ordered By: Mariann Medellin
Discharge Date and Time
Print Language: [place] CITIZEN

Documented by User: Feng Damon DO 02/14/25 15:57
Discharge Summary
Discharge Data
Date of Admission: 02/13/25
Date of Discharge: 02/14/25
Total time spent discharging patient (in min): 37
Discharge Plan
-
Patient Disposition: Custodial
Discharge Diagnosis/Procedures: Left facial cellulitis
MRSA positive
Left eye injection secondary to contact lens usage
Bipolar affective disorder
Posttraumatic stress disorder
Condition: Fair
Diet: No restrictions
Activity: No restrictions
Driving Restrictions: As prior to admission
Bathing Restrictions: None
Instructions: Wound Care (DC), Cellulitis (Skin Infection), Adult (DC), Skin Abscess
Referrals:
[place] [facility] [Family Provider, General]
Additional Discharge Medication Instructions: -Continue metronidazole 500 mg tablet 3 times a day until 02/22
-Continue doxycycline 100 mg tablet twice a day until 02/22
-Continue ciprofloxacin eyedrops every 4 hours through 02/19
-Take probiotic along with medications.
-Try to clean with mild soap water while on shower for the wound, apply clean Band-Aid.
-Avoid alcohol while on metronidazole medication.
-If you experience skin rashes please stop doxycycline medication and report to the clinic.
-Follow-up with PCP within a week of discharge.
-Tylenol 1 g every 6 hours for pain, can also use ibuprofen 600 mg breakthrough discomfort, avoid prolonged course of NSAID
Prescriptions:
New
ciprofloxacin HCl 0.3 % Drops
1 drp LEFT EYE Q4H Qty: 10 0RF
acetaminophen 325 mg Tablet
650 mg PO Q4HPRN PRN (Reason: mild pain/COTTRELL/temp>100.5) Qty: 10 0RF
doxycycline hyclate 100 mg capsule
100 mg PO BID Qty: 17 0RF
metronidazole 500 mg tablet
500 mg PO TID Qty: 26 0RF
Probiotic 15 billion cell capsule, sprinkle
1 cap PO DAILY Qty: 20 0RF
Continued
benztropine 0.5 mg Tablet
0.5 mg PO BID
haloperidol 1 mg Tablet
1 mg PO HS
prazosin 5 mg Capsule
5 mg PO HS
lamotrigine 100 mg Tablet
100 mg PO BID
hydroxyzine pamoate 25 mg Capsule
25 mg PO BID
aripiprazole 30 mg tablet
30 mg PO DAILY
Discharge Orders:
Discharge Patient (As Directed); Ordered 02/14/25
Ordered By: Mariann Medellin
Discharge Date and Time
Print Language: [place] CITIZEN
--- NOTE | 2025-02-14 15:23 | PTCARENOTE ---
Pt being DC'd on PO ABX, final cx to follow. Prelim neg. Pt made aware of DC plan, IV removed. Paperwork for transfer given to CO at pts side. ABX to be started tomorrow, last doses of IV ABX given today to cover rest of day. No new orders at this
time.
== END 2025-02-14 18:13 | DRG 603 ==
LOC: 2 NORTH 13:23
PROVIDERS: ADMITTING PHYSICIAN Internal Medicine; CONSULT PHYSICIAN Otolaryngology; EMERGENCY PHYSICIAN Emergency Medicine
DX: L03.211 Cellulitis of face (principal); Z59.00 Homelessness unspecified; F31.9 Bipolar disorder, unspecified; F90.9 Attention-deficit hyperactivity disorder, unspecified type; F43.10 Post-traumatic stress disorder, unspecified; Z88.0 Allergy status to penicillin; F10.10 Alcohol abuse, uncomplicated; F17.210 Nicotine dependence, cigarettes, uncomplicated; F41.0 Panic disorder [episodic paroxysmal anxiety]; J45.909 Unspecified asthma, uncomplicated; K21.9 Gastro-esophageal reflux disease without esophagitis; Z91.199 Patient's noncompliance with other medical treatment and regimen due to unspecified reason
CPT/HCPCS: 80048; 80053; 83605; 85025; 85652; 86140; 87040; 87070; 87147; 87186; 87205; 93005; 96365; 96367; 96375; 99284